=== PATIENT | male | born 1950 | race Caucasian/White ===

== ENCOUNTER 2016-10-09 07:22 | Inpatient (IN) | payer OTHER ==
[~2016-10-09] VITALS: Ht 167.6 cm; Wt 75.0 kg
[2016-10-09] VITALS (14 sets, daily range): BP systolic 84–106; BP diastolic 34–75
[~2016-10-09 07:22] MED LIST: AUGMENTIN875 MG PO; PERCOCET 5/31 TABLET PO; ZOFRAN4 MG PO
[2016-10-09 07:44] LABS: CREATININE 0.9 mg/dL (0.6-1.3); POTASSIUM 4.1 mEq/L (3.7-5.4)
[2016-10-09 08:10] LABS: HEMATOCRIT 48.9 % (38.0-50.0); MCH 30.3 PG (29.0-34.0); MCHC 32.7 G/DL (30.0-36.0); MCV 92.6 FL (86-99); MEAN PLAT.VOLUME 11.3 uM^3 (9.0-12.4); NRBC (%) 0.3 /100 WBC (0-0); PLATELET COUNT 144 K/uL (156-360); RBC DIS.WIDTH-CV 13.9 % (11.8-14.6); RBC DIS.WIDTH-SD 47.5 % (39-53); RED BLOOD COUNT 5.28 M/uL (4.00-5.50); WHITE BLOOD COUNT 7.6 K/uL (4.1-10.2)
[2016-10-09 08:10] LABS: BASE EXCESS -10.5 mEq/L (-3 to +3); BICARBONATE 18.5 mEq/L (22-26); CARBOXY HGB 3.2 % (0-5); METHEMOGLOBIN 1.6 % (0-1.5); PCO2 52 mm Hg (35-45); PO2 287 mm Hg (80-100)
[2016-10-09 08:11] LABS: COMMENTS - BLOOD GASES A+C+; DEVICE VENT; FI02 100 %; MECHANICAL RATE 16 resp/min; MODE AC; PEEP 5 CM/H20; SITE RR; TIDAL VOLUME 500 ML; TOTAL RESP RATE 16 resp/min; pH 7.16 (7.35-7.45)
[2016-10-09 08:20] LABS: PROTHROMBIN TIME 10.6 (9.2-11.2); PTT 27.4 (25-32)
[2016-10-09 08:55] LABS: ANION GAP 15 MEQ/L (2-14); CHLORIDE 103 MEQ/L (99-109); POTASSIUM 3.5 MEQ/L (3.7-5.4); SAMPLE HEMOLYSIS CHECK 0; SAMPLE ICTERIC CHECK 0; SAMPLE LIPEMIA CHECK 0; SODIUM 137 MEQ/L (136-147); TOTAL BILIRUBIN 0.5 MG/DL (0.0-1.0)
[2016-10-09 09:00] LABS: ALKALINE PHOSPHATASE 86 IU/L (3-129); GFR ESTIMATE (CALCULATED) > 59 mL/min/; GLUCOSE 261 mg/dL (70-99); LIPASE 49 U/L (1.0-51.0); UREA NITROGEN (BUN) 12 mg/dL (9-23)
[2016-10-09 09:01] LABS: TROP-I INTERPRETATION NEGATIVE; TROPONIN-I 0.07 ng/mL (0.0-0.30)
[2016-10-09 11:26] LABS: MAGNESIUM 2.3 mg/dl (1.3-2.7)
[2016-10-09 11:33] LABS: BASE EXCESS -6.3 mEq/L (-3 to +3); BICARBONATE 19.7 mEq/L (22-26); CARBOXY HGB 2.1 % (0-5); COMMENTS - BLOOD GASES C+; METHEMOGLOBIN 1.8 % (0-1.5); PCO2 40 mm Hg (35-45); PO2 95 mm Hg (80-100); SITE FEMORAL A LINE
[2016-10-09 11:34] LABS: DEVICE 980; FI02 40 %; MODE SPONT; PEEP 5 CM/H20; PRES. SUPPORT 10 CM/H2O; TOTAL RESP RATE 17 resp/min
[2016-10-09 12:16] LABS: POINT-OF-CARE METER ID UU14174217
[2016-10-09 12:20] LABS: ANION GAP 8 MEQ/L (2-14); CHLORIDE 112 MEQ/L (99-109); SAMPLE HEMOLYSIS CHECK 1; SAMPLE ICTERIC CHECK 0; SAMPLE LIPEMIA CHECK 0; SODIUM 136 MEQ/L (136-147)
[2016-10-09 12:21] LABS: EOSINOPHIL (%) 0.1 % (0-5); HEMATOCRIT 39.5 % (38.0-50.0); IMMATURE GRANULOCYTE (%) 0.6 % (0.0-0.7); IMMATURE GRANULOCYTE COUNT 0.1 K/uL; LYMPHOCYTE COUNT 0.7 K/uL (1.0-2.8); MCH 30.2 PG (29.0-34.0); MCHC 32.4 G/DL (30.0-36.0); MCV 93.2 FL (86-99); MONOCYTE (%) 3.8 % (3-12); MONOCYTE COUNT 0.4 K/uL (0-0.8); NEUTROPHIL (%) 88.8 % (45-76); RBC DIS.WIDTH-SD 47.4 % (39-53); RED BLOOD COUNT 4.24 M/uL (4.00-5.50)
[2016-10-09 12:22] LABS: PLATELET COUNT 219 K/uL (156-360); WHITE BLOOD COUNT 10.2 K/uL (4.1-10.2)
[2016-10-09 12:24] LABS: MAGNESIUM 1.9 mg/dl (1.3-2.7)
[2016-10-09 12:29] LABS: TROP-I INTERPRETATION POSITIVE
[2016-10-09 12:40] LABS: METH RESISTANT S AUREUS PCR NEGATIVE (NEGATIVE)
[2016-10-09 12:41] LABS: GFR ESTIMATE (CALCULATED) > 59 mL/min/; GLUCOSE 133 mg/dL (70-99); UREA NITROGEN (BUN) 10 mg/dL (9-23)
[2016-10-09 12:42] LABS: PROBE CHECK PASS; SPECIMEN PROCESSING CONTROL PASS
[2016-10-09 12:50] LABS: TROPONIN-I 49.48 ng/mL (0.0-0.30)
[2016-10-09 13:22] LABS: CK-MB 49.5 ng/mL (0.0-4.9); CREATINE KINASE 1380 IU/L (1-294)
[2016-10-09 13:25] LABS: BASE EXCESS -5.7 mEq/L (-3 to +3); BICARBONATE 19.4 mEq/L (22-26); PCO2 36 mm Hg (35-45); PO2 89 mm Hg (80-100); pH 7.34 (7.35-7.45)
[2016-10-09 13:26] LABS: COMMENTS - BLOOD GASES A+C+; DEVICE 980; FI02 40 %; MODE TC; SITE RR; TOTAL RESP RATE 19 resp/min
[2016-10-09 13:37] LABS: TOTAL CK 1380 IU/L (1-294)
[2016-10-09 18:57] LABS: TROP-I INTERPRETATION POSITIVE
[2016-10-09 18:58] LABS: TOTAL CK 1778 IU/L (1-294)
[2016-10-09 19:02] LABS: CREATINE KINASE 1778 IU/L (1-294)
[2016-10-09 19:09] LABS: TROPONIN-I 102.79 ng/mL (0.0-0.30)
[2016-10-09 19:25] LABS: CK-MB 284.6 ng/mL (0.0-4.9)
[2016-10-09 20:13] LABS: EOSINOPHIL (%) 0.1 % (0-5); HEMATOCRIT 36.7 % (38.0-50.0); IMMATURE GRANULOCYTE (%) 0.5 % (0.0-0.7); IMMATURE GRANULOCYTE COUNT 0.1 K/uL; INSTRUMENT ABS NEUTROPHIL CT 8.4 K/uL; LYMPHOCYTE COUNT 0.5 K/uL (1.0-2.8); MCH 30.2 PG (29.0-34.0); MCHC 33.2 G/DL (30.0-36.0); MCV 90.8 FL (86-99); MEAN PLAT.VOLUME 10.2 uM^3 (9.0-12.4); MONOCYTE (%) 5.8 % (3-12); MONOCYTE COUNT 0.6 K/uL (0-0.8); NEUTROPHIL (%) 88.2 % (45-76); NEUTROPHIL COUNT 8.4 K/uL (1.8-6.4); PLATELET COUNT 214 K/uL (156-360); RBC DIS.WIDTH-CV 14.3 % (11.8-14.6); RBC DIS.WIDTH-SD 47.8 % (39-53); RED BLOOD COUNT 4.04 M/uL (4.00-5.50); WHITE BLOOD COUNT 9.6 K/uL (4.1-10.2)
[2016-10-09 21:40] LABS: ANION GAP 13 MEQ/L (2-14); CHLORIDE 110 MEQ/L (99-109); SODIUM 139 MEQ/L (136-147)
[2016-10-09 21:41] LABS: GFR ESTIMATE (CALCULATED) > 59 mL/min/; GLUCOSE 111 mg/dL (70-99); MAGNESIUM 2.4 mg/dl (1.3-2.7); UREA NITROGEN (BUN) 10 mg/dL (9-23)
[2016-10-10] VITALS (24 sets, daily range): BP systolic 82–111; BP diastolic 47–71
[2016-10-10 00:58] LABS: POINT-OF-CARE METER ID UU13113731
[2016-10-10 01:52] LABS: TOTAL CK 1868 IU/L (1-294)
[2016-10-10 02:00] LABS: CK-MB 128.5 ng/mL (0.0-4.9)
[2016-10-10 02:02] LABS: CREATINE KINASE 1868 IU/L (1-294)
[2016-10-10 02:23] LABS: TROP-I INTERPRETATION POSITIVE; TROPONIN-I 60.35 ng/mL (0.0-0.30)
[2016-10-10 06:23] LABS: EOSINOPHIL (%) 0.2 % (0-5); HEMATOCRIT 35.5 % (38.0-50.0); IMMATURE GRANULOCYTE (%) 0.5 % (0.0-0.7); INSTRUMENT ABS NEUTROPHIL CT 7.1 K/uL; LYMPHOCYTE COUNT 0.7 K/uL (1.0-2.8); MCH 29.9 PG (29.0-34.0); MCHC 32.4 G/DL (30.0-36.0); MCV 92.4 FL (86-99); MEAN PLAT.VOLUME 10.4 uM^3 (9.0-12.4); MONOCYTE (%) 6.9 % (3-12); MONOCYTE COUNT 0.6 K/uL (0-0.8); NEUTROPHIL (%) 84.2 % (45-76); NEUTROPHIL COUNT 7.1 K/uL (1.8-6.4); PLATELET COUNT 190 K/uL (156-360); RBC DIS.WIDTH-CV 14.4 % (11.8-14.6); RBC DIS.WIDTH-SD 48.7 % (39-53); RED BLOOD COUNT 3.84 M/uL (4.00-5.50); WHITE BLOOD COUNT 8.4 K/uL (4.1-10.2)
[2016-10-10 06:43] LABS: ANION GAP 5 MEQ/L (2-14); CHLORIDE 108 MEQ/L (99-109); GFR ESTIMATE (CALCULATED) > 59 mL/min/; GLUCOSE 101 mg/dL (70-99); HDL CHOLESTEROL 38 MG/DL (Desirable>=40); LDL CHOLESTEROL 107 mg/dL (Desirable<100); MAGNESIUM 2.4 mg/dl (1.3-2.7); NON-HDL CHOLESTEROL 139 mg/dL (Desirable<160); POTASSIUM 4.4 MEQ/L (3.7-5.4); SAMPLE HEMOLYSIS CHECK 0; SAMPLE ICTERIC CHECK 0; SAMPLE LIPEMIA CHECK 0; SODIUM 139 MEQ/L (136-147); TOTAL CHOLESTEROL 177 mg/dL (Desirable<200); TRIGLYCERIDES 161 MG/DL (Normal: <150); UREA NITROGEN (BUN) 9 mg/dL (9-23)
[2016-10-10 07:19] LABS: Estimated Average Glucose 117 mg/dL (70-123); HEMOGLOBIN A1c (GLYCOHEMOGLOB) 5.7 % HGB (Below 5.7)
[2016-10-10 07:20] LABS: TROPONIN-I 38.72 ng/mL (0.0-0.30)
[2016-10-10 07:21] LABS: TROP-I INTERPRETATION POSITIVE
[2016-10-10 07:59] LABS: TOTAL CK 1140 IU/L (1-294)
[2016-10-10 08:05] LABS: CREATINE KINASE 1140 IU/L (1-294)
[2016-10-10 12:00] LABS: POINT-OF-CARE METER ID UU13113731
[2016-10-10 23:59] LABS: POINT-OF-CARE METER ID UU14174217
[2016-10-11] VITALS (15 sets, daily range): BP systolic 100–151; BP diastolic 62–93
[2016-10-11 05:47] LABS: EOSINOPHIL (%) 0.8 % (0-5); EOSINOPHIL COUNT 0.1 K/uL (0-0.3); HEMATOCRIT 35.9 % (38.0-50.0); IMMATURE GRANULOCYTE (%) 0.3 % (0.0-0.7); INSTRUMENT ABS NEUTROPHIL CT 7.8 K/uL; LYMPHOCYTE COUNT 0.9 K/uL (1.0-2.8); MCH 30.1 PG (29.0-34.0); MCHC 32.3 G/DL (30.0-36.0); MEAN PLAT.VOLUME 10.5 uM^3 (9.0-12.4); MONOCYTE (%) 5.9 % (3-12); MONOCYTE COUNT 0.6 K/uL (0-0.8); NEUTROPHIL (%) 83.1 % (45-76); NEUTROPHIL COUNT 7.8 K/uL (1.8-6.4); PLATELET COUNT 190 K/uL (156-360); RBC DIS.WIDTH-CV 14.6 % (11.8-14.6); RBC DIS.WIDTH-SD 49.9 % (39-53); RED BLOOD COUNT 3.86 M/uL (4.00-5.50); WHITE BLOOD COUNT 9.4 K/uL (4.1-10.2)
[2016-10-11 06:12] LABS: ANION GAP 7 MEQ/L (2-14); CHLORIDE 106 MEQ/L (99-109); GFR ESTIMATE (CALCULATED) > 59 mL/min/; GLUCOSE 104 mg/dL (70-99); SAMPLE HEMOLYSIS CHECK 0; SAMPLE ICTERIC CHECK 0; SAMPLE LIPEMIA CHECK 0; SODIUM 137 MEQ/L (136-147); UREA NITROGEN (BUN) 9 mg/dL (9-23)
[2016-10-12] VITALS: BP 105/66
[2016-10-12 04:00] VITALS: BP 117/78
[2016-10-12 05:57] LABS: EOSINOPHIL (%) 1.3 % (0-5); EOSINOPHIL COUNT 0.1 K/uL (0-0.3); HEMATOCRIT 35.8 % (38.0-50.0); IMMATURE GRANULOCYTE (%) 0.6 % (0.0-0.7); IMMATURE GRANULOCYTE COUNT 0.1 K/uL; INSTRUMENT ABS NEUTROPHIL CT 7.3 K/uL; LYMPHOCYTE COUNT 0.5 K/uL (1.0-2.8); MCH 30.6 PG (29.0-34.0); MCHC 33.5 G/DL (30.0-36.0); MCV 91.3 FL (86-99); MEAN PLAT.VOLUME 10.1 uM^3 (9.0-12.4); MONOCYTE COUNT 0.7 K/uL (0-0.8); NEUTROPHIL (%) 83.9 % (45-76); NEUTROPHIL COUNT 7.3 K/uL (1.8-6.4); PLATELET COUNT 199 K/uL (156-360); RBC DIS.WIDTH-CV 14.2 % (11.8-14.6); RED BLOOD COUNT 3.92 M/uL (4.00-5.50); WHITE BLOOD COUNT 8.7 K/uL (4.1-10.2)
[2016-10-12 06:30] LABS: TROP-I INTERPRETATION POSITIVE; TROPONIN-I 12.18 ng/mL (0.0-0.30)
[2016-10-12 08:00] VITALS: BP 131/116
[2016-10-12 12:00] VITALS: BP 108/65
[2016-10-12 16:00] VITALS: BP 100/60
[2016-10-12 20:00] VITALS: BP 124/75
[2016-10-13] VITALS: BP 122/79
[2016-10-13 04:00] VITALS: BP 118/79
[2016-10-13 09:00] VITALS: BP 128/70
[2016-10-13 12:00] VITALS: BP 128/77
[2016-10-13 16:00] VITALS: BP 123/75
[2016-10-13 20:00] VITALS: BP 106/71
[2016-10-14] VITALS: BP 131/79
[2016-10-14 04:00] VITALS: BP 125/67
[2016-10-14 08:00] VITALS: BP 140/93
[2016-10-14 12:00] VITALS: BP 122/80
[2016-10-14] MEDS ORDERED: LOPRESSOR25 MG PO (16:36)
[2016-10-14] MEDS ORDERED: LISINOPRIL2.5 MG PO (16:37)
[2016-10-14] MEDS ORDERED: ASPIR-LOW81 MG PO (16:37)
[2016-10-14] MEDS ORDERED: SPIRONOLACTONE25 MG PO (16:37)
[2016-10-14] MEDS ORDERED: ADVAIR HFA120 INHALA IH (16:40)
[2016-10-14] MEDS ORDERED: ATORVASTATIN CA80 MG PO (16:40)
[2016-10-14] MEDS ORDERED: SPIRIVA RESPIMAT4 GM IH (16:40)
[2016-10-14] MEDS ORDERED: EFFIENT10 MG PO (16:40)
== END 2016-10-14 17:17 | disposition home or self-care (01) | DRG 246 ==
LOC: EME 07:22 → CATH 09:15 → EME 09:15 → 4WEST 10:09
PROVIDERS: Emergency Medicine; Internal Medicine Cardiovascular Disease; Internal Medicine Nephrology; Internal Medicine Pulmonary Disease; Surgery Surgical Critical Care
PROC: B2151ZZ Fluoroscopy of Left Heart using Low Osmolar Contrast (ICD-10-PCS; principal; 2016-10-09)
PROC: 5A12012 Performance of Cardiac Output, Single, Manual (ICD-10-PCS; principal; 2016-10-09)
PROC: 4A023N7 Measurement of Cardiac Sampling and Pressure, Left Heart, Percutaneous Approach (ICD-10-PCS; principal; 2016-10-09)
PROC: 5A09357 Assistance with Respiratory Ventilation, Less than 24 Consecutive Hours, Continuous Positive Airway Pressure (ICD-10-PCS; principal; 2016-10-09)
PROC: 027036Z Dilation of Coronary Artery, One Artery with Three Drug-eluting Intraluminal Devices, Percutaneous Approach (ICD-10-PCS; principal; 2016-10-09)
PROC: 0BH17EZ Insertion of Endotracheal Airway into Trachea, Via Natural or Artificial Opening (ICD-10-PCS; principal; 2016-10-09)
DX: I21.09 ST elevation (STEMI) myocardial infarction involving other coronary artery of anterior wall (principal); I46.9 Cardiac arrest, cause unspecified; J96.02 Acute respiratory failure with hypercapnia; J69.0 Pneumonitis due to inhalation of food and vomit; E87.2 Acidosis; I50.20 Unspecified systolic (congestive) heart failure; I25.10 Atherosclerotic heart disease of native coronary artery without angina pectoris; I42.9 Cardiomyopathy, unspecified; E83.42 Hypomagnesemia; I27.2 Other secondary pulmonary hypertension; I10 Essential (primary) hypertension; J44.9 Chronic obstructive pulmonary disease, unspecified; F17.210 Nicotine dependence, cigarettes, uncomplicated; E87.6 Hypokalemia; R73.9 Hyperglycemia, unspecified; E78.5 Hyperlipidemia, unspecified; I25.2 Old myocardial infarction
CPT/HCPCS: 36600; 71010; 80047; 80048; 80048 91; 80053; 80061; 82550; 82550 91; 82553; 82803; 82948; 83036; 83690; 83735; 84100; 84484; 85025; 85025 91; 85027; 85347; 85610; 85730; 86850; 86900; 86901; 87040; 87070; 87205; 87641; 87801; 93005; 93306; 94002; 94010; 94640; 94640 76; 94760; 94799; 97530 GO; 99202; C1725; C1769; C1874; C1887; C1894; J0282; J0330; J0461; J1170; J1644; J1815; J2250; J2405; J2543; J2704; J3010; J3246; J3475; J3480; J7030; J7050; J7120

== ENCOUNTER 2017-03-21 11:43 | Day surgery (SDC) | payer OTHER ==
[~2017-03-21] VITALS: Ht 167.6 cm; Wt 70.2 kg
[~2017-03-21 11:43] MED LIST changes: +ADVAIR HFA120 INHALA IH; +ASPIR-LOW81 MG PO; +ATORVASTATIN CA80 MG PO; +EFFIENT10 MG PO; +LISINOPRIL2.5 MG PO; +LOPRESSOR25 MG PO; +PLAVIX75 MG PO; +SPIRIVA RESPIMAT4 G1 IH; +SPIRIVA RESPIMAT4 GM IH; +SPIRONOLACTONE25 MG PO
[2017-03-21 17:37] VITALS: BP 123/72
[2017-03-21 19:05] VITALS: BP 118/72
[2017-03-21 23:28] VITALS: BP 116/70
[2017-03-22 04:41] VITALS: BP 136/83
[2017-03-22 06:59] VITALS: BP 118/77
[2017-03-22 10:41] VITALS: BP 119/66
== END 2017-03-22 11:31 | disposition home or self-care (01) ==
LOC: CATH 11:43 → ENRESERV 15:43 → 2SOUTH 16:19 → 4EAST 16:19 → 2SOUTH 16:19 → 4EAST 17:27 → ENPENDDIS 03-22 → 4EAST 03-22 11:31
PROC: 02HK3KZ Insertion of Defibrillator Lead into Right Ventricle, Percutaneous Approach (ICD-10-PCS; principal; 2017-03-21)
PROC: 0JH608Z Insertion of Defibrillator Generator into Chest Subcutaneous Tissue and Fascia, Open Approach (ICD-10-PCS; principal; 2017-03-21)
DX: I25.5 Ischemic cardiomyopathy (principal); I11.0 Hypertensive heart disease with heart failure; I50.9 Heart failure, unspecified; I25.2 Old myocardial infarction; E78.5 Hyperlipidemia, unspecified; J44.9 Chronic obstructive pulmonary disease, unspecified; F17.200 Nicotine dependence, unspecified, uncomplicated; Z79.82 Long term (current) use of aspirin; Z79.02 Long term (current) use of antithrombotics/antiplatelets
CPT/HCPCS: 71010; 93005; C1894; C1899; G0378; J0690; J1200; J2250; J3010; S0020

== ENCOUNTER 2017-08-23 00:33 | Observation (INO) | payer OTHER ==
[~2017-08-23] VITALS: Ht 167.6 cm; Wt 79.3 kg
[2017-08-23 02:10] LABS: HEMATOCRIT 41.6 % (38.0-50.0); HEMOGLOBIN 14.2 G/DL (12.5-16.6); MCH 30.3 PG (29.0-34.0); MCHC 34.1 G/DL (30.0-36.0); MCV 88.9 FL (86-99); PLATELET COUNT 223 K/uL (156-360); RBC DIS.WIDTH-CV 14.2 % (11.8-14.6); RBC DIS.WIDTH-SD 46.2 % (39-53); RED BLOOD COUNT 4.68 M/uL (4.00-5.50); WHITE BLOOD COUNT 9.3 K/uL (4.1-10.2)
[2017-08-23 02:18] LABS: PTT 27.7 SEC (25-37)
[2017-08-23 02:26] LABS: ALBUMIN 4.1 g/dL (3.2-4.8); CHLORIDE 106 mEq/L (99-109); POTASSIUM 3.6 mEq/L (3.7-5.4); SODIUM 138 mEq/L (136-147)
[2017-08-23 02:28] LABS: GLUCOSE 111 mg/dL (70-99); TOTAL PROTEIN 7.4 g/dL (6.4-8.3)
[2017-08-23 02:30] LABS: TOTAL BILIRUBIN 0.6 mg/dL (0.0-1.0)
[2017-08-23 02:32] LABS: ALKALINE PHOSPHATASE 102 IU/L (3-129); CREATININE 0.8 mg/dL (0.6-1.3); GFR ESTIMATE (CALCULATED) > 59 mL/min/ (58.99-99999)
[2017-08-23 02:33] LABS: UREA NITROGEN (BUN) 10 mg/dL (9-23)
[2017-08-23 02:34] LABS: AST (GOT) 25 IU/L (2-34)
[2017-08-23 02:35] LABS: ALT (GPT) 36 IU/L (3-49); LIPASE 66 U/L (1.0-51.0)
[2017-08-23 02:41] LABS: TROP-I INTERPRETATION NEGATIVE; TROPONIN-I 0.02 ng/mL (0.0-0.30)
[2017-08-23 03:42] LABS: APPEARANCE SL.HAZY ((CLEAR)); BILIRUBIN NEGATIVE; BLOOD NEGATIVE; COLOR YELLOW ((YELLOW)); GLUCOSE (STRIP) NEGATIVE; KETONES NEGATIVE; LEUKOCYTES TRACE; NITRITE POSITIVE; PROTEIN (STRIP) NEGATIVE; SPECIFIC GRAVITY 1.014 (1.000-1.030); UROBILINOGEN 0.2 MG/DL (0.2-1.0)
[2017-08-23 03:57] LABS: BACTERIA 1+ /HPF; EPITHELIAL CELLS RARE /HPF; HYALINE CASTS 0-5 /LPF; MUCUS TRACE /LPF; RED BLOOD CELLS 0-5 /HPF (0-5); UCUL ADDED? NO; WHITE BLOOD CELLS 0-5 /HPF (0-5)
[2017-08-23 11:54] LABS: TROP-I INTERPRETATION NEGATIVE; TROPONIN-I < 0.01 ng/mL (0.0-0.30)
[2017-08-23 19:22] VITALS: BP 135/78
[2017-08-23 19:30] VITALS: BP 113/70
[2017-08-23 19:42] LABS: TROP-I INTERPRETATION NEGATIVE; TROPONIN-I 0.02 ng/mL (0.0-0.30)
[2017-08-23 23:38] VITALS: BP 115/71
[2017-08-24 04:00] VITALS: BP 107/60
[2017-08-24 05:14] LABS: HEMATOCRIT 36.1 % (38.0-50.0); HEMOGLOBIN 11.8 G/DL (12.5-16.6); MCH 29.2 PG (29.0-34.0); MCHC 32.7 G/DL (30.0-36.0); MCV 89.4 FL (86-99); PLATELET COUNT 200 K/uL (156-360); RBC DIS.WIDTH-CV 14.6 % (11.8-14.6); RBC DIS.WIDTH-SD 47.6 % (39-53); RED BLOOD COUNT 4.04 M/uL (4.00-5.50)
[2017-08-24 05:34] LABS: CHLORIDE 106 MEQ/L (99-109); CREATININE 0.8 MG/DL (0.6-1.3); GFR ESTIMATE (CALCULATED) > 59 mL/min/ (58.99-99999); GLUCOSE 96 mg/dL (70-99); POTASSIUM 3.8 MEQ/L (3.7-5.4); SODIUM 138 MEQ/L (136-147); UREA NITROGEN (BUN) 6 mg/dL (9-23)
[2017-08-24 07:30] VITALS: BP 126/72
[2017-08-24 11:11] VITALS: BP 105/60
[2017-08-24] MEDS ORDERED: CIPRO500 MG PO (12:47)
== END 2017-08-24 13:52 | disposition home or self-care (01) ==
LOC: EME 00:33 → EDOF 08:24 → ENRESERV 08:27 → 5WEST 18:03 → ENPENDDIS 08-24 12:53 → 5WEST 08-24 13:52
PROVIDERS: Emergency Medicine; Internal Medicine
DX: R55 Syncope and collapse (principal); R11.2 Nausea with vomiting, unspecified; N39.0 Urinary tract infection, site not specified; R09.02 Hypoxemia; K52.9 Noninfective gastroenteritis and colitis, unspecified; E86.0 Dehydration; I25.10 Atherosclerotic heart disease of native coronary artery without angina pectoris; I25.2 Old myocardial infarction; I49.01 Ventricular fibrillation; Z95.810 Presence of automatic (implantable) cardiac defibrillator; I10 Essential (primary) hypertension; E78.5 Hyperlipidemia, unspecified; Z86.74 Personal history of sudden cardiac arrest; F17.210 Nicotine dependence, cigarettes, uncomplicated; I25.5 Ischemic cardiomyopathy; I71.4 Abdominal aortic aneurysm, without rupture; Z95.5 Presence of coronary angioplasty implant and graft; Z79.82 Long term (current) use of aspirin
CPT/HCPCS: 71045; 74177; 80048; 80053; 81003; 83605; 83690; 84484; 85027; 85610; 85730; 87040; 87077; 87086; 87177; 87186; 87493; 87502; 87506; 93005; 93306; 93880; 94799; 99281; 99285; G0378; J0744; J1650; J2405; J7030; S0030